=== PATIENT | male | born 1955 | race African-American/Black ===

== ENCOUNTER 2016-12-17 11:38 | Emergency (ER) | payer OTHER ==
[~2016-12-17] VITALS: Ht 180.3 cm; Wt 81.5 kg
[~2016-12-17 11:38] MED LIST: AMLO10TA55 PO; CARI350T PO; HYDR-4106 PO; VALS320T2 PO
[2016-12-17] MEDS ORDERED: MONT10TA21 PO (11:51)
[2016-12-17] MEDS ORDERED: AmLODIPine BESYLATE 5 MG TABLET PO ONE (12:15)
[2016-12-17] MEDS ORDERED: CloNIDine HCL 0.1 MG TABLET PO ONE ×2 (13:00→14:45)
[2016-12-17 17:36] VITALS: BP 183/114
== END 2016-12-17 17:50 | disposition home or self-care (01) ==
LOC: EMS 11:40
DX: I10 Essential (primary) hypertension (principal); T50.905A Adverse effect of unspecified drugs, medicaments and biological substances, initial encounter; F17.210 Nicotine dependence, cigarettes, uncomplicated; Z91.14 Patient's other noncompliance with medication regimen; Y92.89 Other specified places as the place of occurrence of the external cause
CPT/HCPCS: 93005; 99285; 99406

== ENCOUNTER 2018-03-15 11:27 | Emergency (ER) | payer OTHER ==
[~2018-03-15] VITALS: Ht 180.3 cm; Wt 84.5 kg
[~2018-03-15 11:27] MED LIST changes: +MONT10TA21 PO
[2018-03-15 11:37] VITALS: BP 154/102
== END 2018-03-15 13:56 | disposition left against medical advice (07) ==
LOC: EMS 11:28
DX: I10 Essential (primary) hypertension (principal); Z53.21 Procedure and treatment not carried out due to patient leaving prior to being seen by health care provider

== ENCOUNTER 2018-03-17 06:19 | Emergency (ER) | payer OTHER ==
[~2018-03-17] VITALS: Ht 180.3 cm; Wt 66.4 kg
[2018-03-17 06:32] VITALS: BP 163/103
[2018-03-17] MEDS ORDERED: FLUT16H NASAL (06:36)
[2018-03-17] MEDS ORDERED: ATOR20TA86 PO (06:36)
[2018-03-17] MEDS ORDERED: CETI-290 PO (06:36)
[2018-03-17] MEDS ORDERED: AMLO-331 PO (06:36)
== END 2018-03-17 07:00 | disposition left against medical advice (07) ==
LOC: EMS 06:20
DX: R51 Headache (principal); R20.0 Anesthesia of skin; E78.00 Pure hypercholesterolemia, unspecified; I10 Essential (primary) hypertension; G89.29 Other chronic pain; F17.210 Nicotine dependence, cigarettes, uncomplicated

== ENCOUNTER 2018-04-08 13:16 | Emergency (ER) | payer OTHER, MEDICAID ==
[~2018-04-08] VITALS: Ht 180.3 cm; Wt 81.8 kg
[~2018-04-08 13:16] MED LIST changes: +AMLO-331 PO; -AMLO10TA55 PO; +ATOR20TA86 PO; -CARI350T PO; +CETI-290 PO; +FLUT16H NASAL; -HYDR-4106 PO; -VALS320T2 PO
[2018-04-08 15:05] LABS: BASOPHILS % (AUTO) 0.8 % (0.0-2.0); EOSINOPHILS % (AUTO) 4.5 % (1.0-6.0); HEMATOCRIT 43.1 % (41-53); HEMOGLOBIN 13.9 g/dL (13.5-17.5); LYMPHOCYTES # (AUTO) 2.6 K/uL (1.0-4.8); LYMPHOCYTES % (AUTO) 28.3 % (22.0-44.0); MEAN CORPUSCULAR HEMOGLOBIN 25.4 pg (26.0-34.0); MEAN CORPUSCULAR HGB CONC 32.3 G/dL (31.0-37.0); MEAN CORPUSCULAR VOLUME 79 fL (80-100); MONOCYTES # (AUTO) 0.7 K/uL (0.1-1.0); NEUTROPHILS # (AUTO) 5.3 K/uL (1.8-7.7); NEUTROPHILS % (AUTO) 58.4 % (40.0-70.0); PLATELET COUNT (AUTO) 169 K/uL (150-450); RED BLOOD CELL COUNT(AUTO) 5.48 MIL/uL (4.50-5.90); RED CELL DISTRIBUTION WIDTH 19.6 % (11.5-14.5)
[2018-04-08 15:15] LABS: ANION GAP 10 mmol/L (8-16); CALCIUM, TOTAL 8.9 mg/dL (8.8-10.5); CARBON DIOXIDE 25 mmol/L (22-29); CHLORIDE 104 mmol/L (98-107); CREATININE 1.18 mg/dL (0.60-1.30); GLOMERULAR FILTR. RATE CALC > 60 mL/min (>60); GLUCOSE,RANDOM 85 mg/dL (70-110); POTASSIUM 4.3 mmol/L (3.5-5.1); SODIUM SERUM 139 mmol/L (136-145); UREA NITROGEN, BLOOD 17 mg/dL (7-18)
[2018-04-08 15:22] LABS: ALANINE AMINOTRANSFERASE 46 U/L (12-78); ALBUMIN 3.7 g/dL (3.4-5.0); ALKALINE PHOSPHATASE 85 U/L (46-116); ASPARTATE AMINOTRANSFERASE 40 U/L (15-37); BILIRUBIN,TOTAL 0.2 mg/dL (0.1-1.0); TOTAL PROTEIN, SERUM 7.1 g/dL (6.4-8.2)
[2018-04-08 16:12] VITALS: BP 145/92
== END 2018-04-08 16:50 | disposition home or self-care (01) ==
LOC: EMS 13:19
DX: R93.0 Abnormal findings on diagnostic imaging of skull and head, not elsewhere classified (principal); R20.2 Paresthesia of skin; I10 Essential (primary) hypertension; E78.00 Pure hypercholesterolemia, unspecified; F17.210 Nicotine dependence, cigarettes, uncomplicated
CPT/HCPCS: 36415; 70551; 80053; 85025; 99284; G0480

== ENCOUNTER 2019-06-09 08:15 | Emergency (ER) | payer OTHER ==
[~2019-06-09] VITALS: Ht 180.3 cm; Wt 75.9 kg
[~2019-06-09 08:15] MED LIST changes: -AMLO-331 PO; +AMLO-383 PO; -CETI-290 PO; +CETI10TA59 PO
[2019-06-09] MEDS ORDERED: IBUPROFEN 600 MG TABLET PO ONE (09:15)
[2019-06-09 10:11] VITALS: BP 125/86
== END 2019-06-09 10:13 | disposition home or self-care (01) ==
LOC: EMS 08:25
DX: S82.52XA Displaced fracture of medial malleolus of left tibia, initial encounter for closed fracture (principal); E78.00 Pure hypercholesterolemia, unspecified; I10 Essential (primary) hypertension; G89.29 Other chronic pain; M54.9 Dorsalgia, unspecified; F17.210 Nicotine dependence, cigarettes, uncomplicated; Z79.899 Other long term (current) drug therapy; Z98.890 Other specified postprocedural states; W18.39XA Other fall on same level, initial encounter; Y93.89 Activity, other specified; Y92.89 Other specified places as the place of occurrence of the external cause; Y99.8 Other external cause status
CPT/HCPCS: 29515